=== PATIENT | female | born 1945 | race Caucasian/White ===

== ENCOUNTER 2016-07-18 08:47 | Emergency (ER) | payer OTHER ==
[2016-07-18 08:54] VITALS: TEMP 98.1
[2016-07-18] MEDS ORDERED: NS 1,000 ML IV ONE (09:12)
--- NOTE | 2016-07-18 09:13 | EDPHY ---
HPI/HX/ROS/PE/MDM Narrative: CHIEF COMPLAINT: Nausea, vomiting HPI: The patient is a 71 y/o female, with a history of lymphoma and breast cancer, complaining of persistent nausea and vomiting over the last year. She has been evaluated by multiple specialists including her GI doctor at [facility] for these symptoms. She says, "I vomit daily" even with bland food. She came into the ED because "I want to check my fluids and electrolytes." No ongoing diarrhea, fever, abdominal pain, or cough. REVIEW OF SYSTEMS: Aside from elements discussed in the HPI, a comprehensive 10-point review of systems was reviewed and is negative. PMH: Lymphoma, breast cancer, migraines, bone marrow transplant, right mastectomy, tumor removed from cecum, tubal ligation Prior medical records reviewed including admission on 08/14/15 for the same symptoms. SOCIAL HISTORY: Former smoker. GI at [facility] PHYSICAL EXAM: General:Patient is alert, in no acute distress. ENT:Eyes are normal to inspection. ENT inspection normal. Neck: Normal inspection. Full range of motion. Respiratory:No respiratory distress. Breath sounds normal bilaterally. Cardiovascular: Regular rate and rhythm. Strong peripheral pulses. Normal cap refill. Abdomen:The abdomen is nontender to palpation. There are no peritoneal signs. There are normal bowel sounds. Back: Normal to inspection. No tenderness to palpation. Skin: Normal color. No rash. Warm and dry. Extremities: Normal appearance. Full range of motion. Neuro: Oriented x3. Normal motor function. Normal sensory function. ED Course: This is a 71 y/o female with a 1-year history of unexplained nausea and vomiting. She reports she has been worked up extensively for this with specialists already. She presents today requesting that we give IV fluids and check her electrolytes. No fever or diarrhea. Abdomen is benign. IV established. Labs drawn including CBC, CHEM. 1L IV NS administered. 1035: Reassessed patient. Labs unremarkable. She is feeling improved and ready to go home. I've advised her to follow up with her GI doctor this week. Return precautions given. She is comfortable with this plan. MDM: This patient presents with nausea and vomiting that has been present for at least a year and has been extensively worked up. She is here to make sure her electrolytes are normal, and indeed they are normal. The patient has normal vital signs and a benign abdomen. On re-evaluation she feels much better and is tolerating PO without difficulty. I think she is safe for discharge home without further testing. - Data Points Laboratory Results: Laboratory Results 07/18/16 09:30 07/18/16 09:30 07/18/16 07/18/16 09:30 09:30 WBC 9.49 10^3/uL 10^3/uL (3.80-9.50) RBC 4.96 10^6/uL 10^6/uL (4.18-5.33) Hgb 14.8 g/dL g/dL (12.6-16.3) Hct 43.1 % % (38.0-47.0) MCV 86.9 fL fL (81.5-99.8) MCH 29.8 pg pg (27.9-34.1) MCHC 34.3 g/dL g/dL (32.4-36.7) RDW 13.6 % % (11.5-15.2) Plt Count 204 10^3/uL 10^3/uL (150-400) MPV 9.9 fL fL (8.7-11.7) Neut % (Auto) 80.3 % H % (39.3-74.2) Lymph % (Auto) 12.9 % L % (15.0-45.0) [place] % (Auto) 5.3 % % (4.5-13.0) Eos % (Auto) 0.8 % % (0.6-7.6) Baso % (Auto) 0.4 % % (0.3-1.7) Nucleat RBC Rel Count 0.0 % % (0.0-0.2) Absolute Neuts (auto) 7.62 10^3/uL H 10^3/uL (1.70-6.50) Absolute Lymphs (auto) 1.22 10^3/uL 10^3/uL (1.00-3.00) Absolute Monos (auto) 0.50 10^3/uL 10^3/uL (0.30-0.80) Absolute Eos (auto) 0.08 10^3/uL 10^3/uL (0.03-0.40) Absolute Basos (auto) 0.04 10^3/uL 10^3/uL (0.02-0.10) Absolute Nucleated RBC 0.00 10^3/uL 10^3/uL (0-0.01) Immature Gran % 0.3 % % (0.0-1.1) Immature Gran # 0.03 10^3/uL 10^3/uL (0.00-0.10) Sodium 142 mEq/L mEq/L (134-144) Potassium 4.0 mEq/L mEq/L (3.5-5.2) Chloride 103 mEq/L mEq/L (97-110) Carbon Dioxide 27 mEq/l mEq/l (22-31) Anion Gap 12 mEq/L mEq/L (8-16) BUN 12 mg/dL mg/dL (7-23) Creatinine 0.8 mg/dL mg/dL (0.6-1.0) Estimated GFR > 60 Glucose 112 mg/dL H mg/dL (70-100) Calcium 10.1 mg/dL mg/dL (8.5-10.4) General Time Seen by Provider: 07/18/16 09:04 Initial Vital Signs: Initial Vital Signs Temperature (C) 36.7 C 07/18/16 08:50 Heart Rate 106 H 07/18/16 08:50 Respiratory Rate 16 07/18/16 08:50 Blood Pressure 120/78 07/18/16 08:50 O2 Sat (%) 98 07/18/16 08:50 O2 Delivery Mode Room Air Allergies/Adverse Reactions: No Known Allergies Allergy (Unverified 08/14/15 21:07) Home Medications: Medication Instructions Recorded Metoprolol Succinate Xr [Toprol Xl 50 mg PO DAILY 02/16/14 50 mg (*)] buPROPion XL [Wellbutrin 150mg XL] 150 mg PO DAILY 08/14/15 traZODone [traZODONE 100MG (*)] 100 mg PO HS PRN 08/14/15 Herbals/Supplements -Info Only 1 ea PO DAILY 08/15/15 Acetaminophen [Tylenol 325mg (*)] 650 mg PO Q4 PRN #0 tab 08/16/15 Azithromycin [Zithromax] 250 mg PO DAILY #3 tab 08/16/15 guaiFENesin [Mucinex 600 MG (*)] 1,200 mg PO BID #0 tab.er 08/16/15 predniSONE 40 mg PO DAILY #6 tablet 08/16/15 Ondansetron Odt [Zofran Odt] 4 mg PO Q4PRN PRN #30 tab 07/18/16 Departure - Departure Disposition: Home, Routine, Self-Care Clinical Impression: Dehydration Nausea and vomiting Qualifiers: Vomiting type: unspecified Vomiting Intractability: non-intractable Qualified Code(s): R11.2 - Nausea with vomiting, unspecified Condition: Good Instructions: Dehydration (ED), Acute Nausea and Vomiting (ED) Additional Instructions: Follow up with your GI specialist this week for continued symptoms. Return for inability to keep food down, fever, abdominal pain, or other worsening of condition. Referrals: RADHA CHAU [Other] - As per Instructions Prescriptions: Ondansetron Odt [Zofran Odt] 4 mg PO Q4PRN PRN #30 tab PRN Reason: Nausea Report Scribed for: Dano Warner Report Scribed by: Anne Mirza Date of Report: 07/18/16 Time of Report: 09:06 Physician Review and Approval Statement: Portions of this note were transcribed by an ED scribe. I personally performed the history, physical exam, and medical decision making; and confirm the accuracy of the information in the transcribed note.
[2016-07-18] MEDS ORDERED: ONDANSETRON 4 MG/2 ML VIAL IVP ONE (09:16)
[2016-07-18 09:41] LABS: % IMMATURE GRANULYOCYTES 0.3 % (0.0-1.1); ABSOLUTE IMMATURE GRANULOCYTES 0.03 10^3/uL (0.00-0.10); ADD DIFF? NO; ADD MORPH? NO; ADD SCAN? NO; ATYPICAL LYMPHOCYTE FLAG 0 (0-99); FRAGMENT RBC FLAG 0 (0-99); HEMATOCRIT 43.1 % (38.0-47.0); HEMOGLOBIN 14.8 g/dL (12.6-16.3); LEFT SHIFT FLG 0 (0-99); LIPEMIA HEMOLYSIS FLAG 90 (0-99); MEAN CELL HEMOGLOBIN 29.8 pg (27.9-34.1); MEAN CELL HEMOGLOBIN CONCENTR. 34.3 g/dL (32.4-36.7); MEAN CELL VOLUME 86.9 fL (81.5-99.8); MEAN PLATELET VOLUME 9.9 fL (8.7-11.7); PLATELET CLUMPS FLAG 50 (0-99); PLATELET COUNT 204 10^3/uL (150-400); RED BLOOD CELL COUNT 4.96 10^6/uL (4.18-5.33); RED CELL DISTRIBUTION WIDTH 13.6 % (11.5-15.2)
[2016-07-18 09:54] LABS: ANION GAP 12 mEq/L (8-16); CALCIUM 10.1 mg/dL (8.5-10.4); CARBON DIOXIDE 27 mEq/l (22-31); CHLORIDE 103 mEq/L (97-110); CREATININE 0.8 mg/dL (0.6-1.0); GLOMERULAR FILTRATION RATE > 60; GLUCOSE 112 mg/dL (70-100); SODIUM 142 mEq/L (134-144)
[2016-07-18 10:56] VITALS: BP 107/72; PULSE 75; RESP 17; O2SAT 96
== END 2016-07-18 10:55 | disposition home or self-care (01) ==
DX: E86.0 Dehydration (principal); Z85.3 Personal history of malignant neoplasm of breast; Z87.891 Personal history of nicotine dependence
CPT/HCPCS: 96361; 96374; 99284; J2405